=== PATIENT | male | born 1975 | race Caucasian/White ===

== ENCOUNTER 2020-06-17 09:14 | Emergency (ER) | payer BC, OTHER ==
[~2020-06-17 09:14] MED LIST: CIPRO500 MG PO; COZAAR100 MG PO; FLAGYL500 MG PO; HABITROL 14 MG P1 EA TOP; MELATONIN10 M2 PO; PHENERGAN 12.12.5 M1 PO; PROTONIX40 MG PO; TRAMADOL HCL50 MG PO; ZANTAC150 MG PO
[2020-06-17 10:11] LABS: HEMOGLOBIN 16.2 gm/dl (14.0-17.5); RED BLOOD COUNT 5.6 M/UL (4.20-5.50); WHITE BLOOD COUNT 6.2 K/UL (4.5-11.0)
[2020-06-17 10:38] LABS: BUN/CREATININE RATIO 10 (0-10)
[2020-06-17] MEDS ORDERED: KEPPRA500 MG PO (12:19)
[2020-06-17] MEDS ORDERED: KEPPRA750 MG PO (12:40)
== END 2020-06-17 13:20 | disposition home or self-care (01) ==
LOC: ER1 09:14
PROVIDERS: Emergency Medicine
DX: S13.9XXA Sprain of joints and ligaments of unspecified parts of neck, initial encounter (principal); R55 Syncope and collapse; R56.9 Unspecified convulsions; R91.1 Solitary pulmonary nodule; F17.200 Nicotine dependence, unspecified, uncomplicated; Z87.19 Personal history of other diseases of the digestive system; Z88.0 Allergy status to penicillin; W19.XXXA Unspecified fall, initial encounter
CPT/HCPCS: 70450; 71045; 72125; 80053; 80307; 81001; 82550; 82553; 83874; 84484; 85025; 85610; 85730; 96365; 99285; J1953

== ENCOUNTER → 2020-08-14 | Outpatient (CLI) | payer BC, OTHER ==
[~2020-08-14] MED LIST changes: +KEPPRA500 MG PO; +KEPPRA750 MG PO
== END ==
LOC: EMI 08:00
DX: R56.9 Unspecified convulsions (principal)
CPT/HCPCS: 70551

== ENCOUNTER → 2020-08-14 | Outpatient (CLI) | payer BC, OTHER | LOC: EXRD 09:31 | DX: R93.89 Abnormal findings on diagnostic imaging of other specified body structures (principal) | CPT/HCPCS: 71046 ==

== ENCOUNTER → 2020-12-01 | Outpatient (CLI) | payer BC, OTHER | LOC: HEART 5 14:12 | DX: R06.02 Shortness of breath (principal) | CPT/HCPCS: 94010 ==

== ENCOUNTER 2021-06-23 15:57 | Emergency (ER) | payer OTHER ==
[2021-06-23 17:22] LABS: HEMOGLOBIN 17.1 gm/dl (14.0-17.5); RED BLOOD COUNT 5.74 M/UL (4.20-5.50); WHITE BLOOD COUNT 8.5 K/UL (4.5-11.0)
[2021-06-23 17:42] LABS: BUN/CREATININE RATIO 13 (0-10)
== END 2021-06-23 19:50 | disposition home or self-care (01) ==
LOC: ER1 15:57
PROVIDERS: Physician Assistant
DX: R07.9 Chest pain, unspecified (principal); I10 Essential (primary) hypertension; F17.200 Nicotine dependence, unspecified, uncomplicated; Z88.0 Allergy status to penicillin
CPT/HCPCS: 71045; 80053; 82550; 82553; 83874; 84484; 85025; 93005; 99285

== ENCOUNTER 2021-11-09 19:48 | Emergency (ER) | payer OTHER ==
[2021-11-09 21:11] LABS: HEMOGLOBIN 16.8 gm/dl (14.0-17.5); RED BLOOD COUNT 5.64 M/UL (4.20-5.50); WHITE BLOOD COUNT 9.2 K/UL (4.5-11.0)
[2021-11-09 21:33] LABS: BUN/CREATININE RATIO 11 (0-10)
== END 2021-11-10 00:25 | disposition home or self-care (01) ==
LOC: ER1 19:48
PROVIDERS: Physician Assistant
DX: G40.909 Epilepsy, unspecified, not intractable, without status epilepticus (principal); M25.512 Pain in left shoulder; M54.2 Cervicalgia; I10 Essential (primary) hypertension; Z88.0 Allergy status to penicillin; Z79.899 Other long term (current) drug therapy; F17.210 Nicotine dependence, cigarettes, uncomplicated; W01.10XA Fall on same level from slipping, tripping and stumbling with subsequent striking against unspecified object, initial encounter
CPT/HCPCS: 70450; 72125; 73030; 80053; 80307; 81001; 83605; 85025; 87086; 99283